=== PATIENT | female | born 1995 | race Caucasian/White ===

== ENCOUNTER 2020-03-18 00:45 | Inpatient (IN) | payer MEDICAID, OTHER ==
[~2020-03-18] VITALS: Ht 157.5 cm; Wt 102.1 kg
[2020-03-18] MEDS ORDERED: DEXT 5%/LR + PITOCIN 20UNITS/L 1,000 ML IV SCH (02:12)
[2020-03-18] MEDS ORDERED: BUTORPHANOL TARTRATE 2 MG/ML VIAL IV PRN ×3 (02:15→05:15)
[2020-03-18] MEDS ORDERED: METHYLERGONOVINE MALEATE 0.2 MG/ML IM PRN (02:15)
[2020-03-18] MEDS ORDERED: CARBOPROST TROMETHAMINE 250 MCG/ML AMPUL IM PRN (02:15)
[2020-03-18] MEDS ORDERED: LIDOCAINE HCL 1% 20ML VIAL (Pyxis) INJ INFIL SCH (02:15)
[2020-03-18] MEDS ORDERED: NALOXONE HCL 0.4 MG/ML 1ML VIAL IM PRN (02:15)
[2020-03-18] MEDS ORDERED: GLYCOPYRROLATE 0.2 MG/ML 2ML VIAL ONE (02:23)
[2020-03-18] MEDS ORDERED: FENTANYL CITRATE/PF 50MCG/ML 2ML VIAL ONE (02:23)
[2020-03-18] MEDS ORDERED: OXYTOCIN 10 UNITS/ML 1ML ONE (02:23)
[2020-03-18] MEDS ORDERED: EPHEDRINE SULFATE 50MG/ML VIAL ONE (02:23)
[2020-03-18] MEDS ORDERED: ONDANSETRON HCL 4MG/2ML INJ ONE (02:23)
[2020-03-18] MEDS ORDERED: MORPHINE SULFATE/PF 1MG/ML 10ML AMP ONE (02:23)
[2020-03-18] MEDS ORDERED: CEFAZOLIN SODIUM 1000MG/VIAL ONE (02:23)
[2020-03-18] MEDS ORDERED: CITRIC ACID/SODIUM CITRATE SOLN 30ML UDC PO ONE (02:45)
[2020-03-18] MEDS ORDERED: TERBUTALINE SULFATE 1MG/ML VIAL SUBCUT ONE (03:00)
[2020-03-18] MEDS: LACTATED RINGERS 1,000 ML IV SCH ×2 (03:06→03:30)
[2020-03-18 03:14] LABS: BASOPHILS % 0.3 % (0.0-2.0); EOSINOPHILS % 0.1 % (0.0-5.0); HEMOGLOBIN. 12.9 g/dL (12.0-16.0); LYMPHOCYTES % 12.2 % (20.0-50.0); MEAN CORPUSCULAR HEMOGLOBIN 30.2 pg (28.0-32.0); MEAN CORPUSCULAR VOLUME 89.3 fL (81.0-99.0); MEAN PLATELET VOLUME 8.7 fl (7.4-10.4); MONOCYTES % 4.4 % (2.0-8.0); PLATELET 230 x1000/uL (130-400); RED BLOOD CELL COUNT 4.26 mill/uL (4.2-5.4); RED CELL DISTRIBUTION WIDTH 13.3 % (11.6-14.6)
[2020-03-18 03:20] LABS: INR 0.9; PARTIAL THROMBOPLASTIN TIME 26.4 sec (23.4-31.0); PROTHROMBIN TIME 9.7 sec (9.6-11.0)
[2020-03-18] MEDS ORDERED: SODIUM CHLORIDE 0.9% 10ML VIAL ONE (03:48)
[2020-03-18 03:49] LABS: HEPATITIS B SURFACE ANTIGEN NEGATIVE
[2020-03-18] MEDS ORDERED: DIPHENHYDRAMINE 50MG/ML VIAL ONE (04:41)
[2020-03-18] MEDS ORDERED: KETOROLAC 60MG/2ML VIAL IM ONE (04:41)
[2020-03-18] MEDS ORDERED: DEXT 5%/LACTATED RINGERS 1,000 ML IV SCH (05:04)
[2020-03-18] MEDS ORDERED: NALOXONE HCL 0.4 MG/ML 1ML VIAL IV PRN (05:15)
[2020-03-18] MEDS ORDERED: BISACODYL 10MG SUPP PR PRN (05:15)
[2020-03-18] MEDS ORDERED: RHO(D) IMMUNE GLOBULIN 300 MCG/SYR IM PRN (05:15)
[2020-03-18] MEDS ORDERED: IBUPROFEN 400MG TABLET PO SCH (05:15)
[2020-03-18] MEDS ORDERED: DIPHENHYDRAMINE 50MG/ML VIAL IV PRN (05:15)
[2020-03-18] MEDS ORDERED: HYDROMORPHONE HCL/PF 2MG/ML CPJ IM PRN (05:15)
[2020-03-18] MEDS ORDERED: LANOLIN OINT 7GM TUBE TOP PRN (05:15)
[2020-03-18] MEDS ORDERED: ONDANSETRON HCL 4MG/2ML INJ IV PRN (05:15)
[2020-03-18] MEDS ORDERED: HEMORRHOIDAL SUPP PR PRN (05:15)
[2020-03-18] MEDS ORDERED: HYDROCODONE/ACETAMINOPHEN 5/325MG TABLET PO PRN (05:15)
[2020-03-18 08:45] VITALS: BP 93/54
[2020-03-18 09:15] VITALS: BP 95/61
[2020-03-18] MEDS: KETOROLAC 30MG/ML VIAL IV SCH ×2 (09:25→16:23)
[2020-03-18 10:15] VITALS: BP 100/60
[2020-03-18] MEDS: MAGNESIUM/ALUMINUM HYDROXIDE/SIMETHICONE 30ML UDC PO SCH ×3 (12:30→20:59)
[2020-03-18] MEDS: SIMETHICONE 80MG TABLET CHEW PO SCH ×3 (13:00→20:59)
[2020-03-18 16:30] VITALS: BP 104/53
[2020-03-18 19:30] VITALS: BP 105/56
[2020-03-18] MEDS: DOCUSATE SODIUM 100MG CAPSULE PO SCH (20:58)
[2020-03-18] MEDS ORDERED: KETOROLAC 30MG/ML VIAL IV SCH (23:45)
[2020-03-19] VITALS: BP 100/60
[2020-03-19] MEDS: KETOROLAC 30MG/ML VIAL IV SCH (00:04)
[2020-03-19] MEDS: LACTATED RINGERS 1,000 ML IV SCH (00:12)
[2020-03-19 04:00] VITALS: BP 126/73
[2020-03-19 07:45] VITALS: BP 115/60
[2020-03-19] MEDS: SIMETHICONE 80MG TABLET CHEW PO SCH ×4 (08:00→21:00)
[2020-03-19] MEDS: FERROUS SULFATE 325MG TABLET PO SCH ×3 (08:32→17:08)
[2020-03-19] MEDS: MAGNESIUM/ALUMINUM HYDROXIDE/SIMETHICONE 30ML UDC PO SCH ×4 (08:32→21:00)
[2020-03-19] MEDS: PRENATAL VIT/FE FUMARATE/FA TABLET PO SCH (08:32)
[2020-03-19 08:38] LABS: HEMATOCRIT 33.6 % (36.0-48.0); HEMOGLOBIN 11.6 g/dL (12.0-16.0); MEAN CORPUSCULAR VOLUME 90.1 fL (81.0-99.0); PLATELET 182 x1000/uL (130-400); RED BLOOD CELL COUNT 3.73 mill/uL (4.2-5.4); RED CELL DISTRIBUTION WIDTH 13.3 % (11.6-14.6)
[2020-03-19] MEDS: IBUPROFEN 600MG TABLET PO SCH ×3 (11:36→23:12)
[2020-03-19 15:37] VITALS: BP 111/62
[2020-03-19 19:30] VITALS: BP 107/62
[2020-03-19] MEDS: DOCUSATE SODIUM 100MG CAPSULE PO SCH (21:00)
[2020-03-20 04:00] VITALS: BP 98/58
[2020-03-20] MEDS: IBUPROFEN 600MG TABLET PO SCH (05:00)
[2020-03-20 07:45] VITALS: BP 120/69
[2020-03-20] MEDS: SIMETHICONE 80MG TABLET CHEW PO SCH (09:27)
[2020-03-20] MEDS: MAGNESIUM/ALUMINUM HYDROXIDE/SIMETHICONE 30ML UDC PO SCH (09:27)
[2020-03-20] MEDS: PRENATAL VIT/FE FUMARATE/FA TABLET PO SCH (09:27)
[2020-03-20] MEDS: FERROUS SULFATE 325MG TABLET PO SCH (09:28)
== END 2020-03-20 10:55 | disposition home or self-care (01) | DRG 540 ==
LOC: OBSVTOIN 00:45 → 8 EST LDRP 00:45 → 8EST 08:34
PROVIDERS: ADMIT Obstetrics & Gynecology; ATTEND Obstetrics & Gynecology
PROC: 10D00Z1 Extraction of Products of Conception, Low, Open Approach (ICD-10-PCS; principal; 2020-03-18)
DX: O34.211 Maternal care for low transverse scar from previous cesarean delivery (principal); E66.01 Morbid (severe) obesity due to excess calories; O36.63X0 Maternal care for excessive fetal growth, third trimester, not applicable or unspecified; O69.81X0 Labor and delivery complicated by cord around neck, without compression, not applicable or unspecified; O99.214 Obesity complicating childbirth; Z37.0 Single live birth; Z3A.39 39 weeks gestation of pregnancy
CPT/HCPCS: 36415; 59412; 82962; 85025; 85027; 86592; 86703; 86762; 86850; 86900; 87340; 88307; 99281; G0378; J0595; J0690; J1200; J1885; J2274; J2405; J2590; J3010; J3105; J3490; J7120; J7121